=== PATIENT | male | born 2005 | race Caucasian/White ===

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

== ENCOUNTER 2025-07-19 20:12 | Emergency (ER) | payer OTHER ==
[~2025-07-19] VITALS: Ht 180.3 cm; Wt 129.3 kg
[~2025-07-19 20:12] MED LIST changes: +FLONASE16 GM NASAL; +MUCINEX D ER 61 EACH PO; +ZITHROMAX500 MG PO
[2025-07-19 22:04] LABS: BASO % 0.5 % (0.1-1.2); EOS # 0.17 (0.04-0.54); EOS % 1.1 % (0.7-7.0); LYMPH # 10.79 (1.18-3.74); LYMPH % 72.5 % (19.3-53.1); MEAN PLATELET VOLUME 9.10 fl (9.4-12.4); MONO # 0.84 (0.24-0.82); MONO % 5.6 % (4.7-12.5); NEUT # 2.96 (1.56-6.13); NEUT % 19.9 % (34.0-71.1); RED CELL DISTRIBUTION WIDTH 12.2 % (11.6-14.4)
[2025-07-19 22:23] LABS: ERYTHROCYTE SEDIMENTATION RATE 11 mm/hr (0-15)
[2025-07-19 22:31] LABS: INR 1.06
[2025-07-19] MEDS ORDERED: METHYLPREDNISOLONE SOD SUCC 125 MG VIAL IV STA (22:31)
[2025-07-19 22:36] LABS: ALT/SGPT 117.0 U/L (12-78); AST/SGOT 56.0 U/L (15-37); BILIRUBIN TOTAL 0.41 mg/dL (0.3-1.2); BUN CREA RATIO 10.0 (7.0-25.0); CREATININE SERUM 1.04 mg/dL (0.70-1.30); GFR 89.3; GLOBULINA 3.6 G/DL (2.4-3.5); GLUCOSE FASTING 100.0 mg/dL (65-100); OSMOLALITY SERUM 275.0 MOSM/KG (275-295)
[2025-07-19] MEDS ORDERED: CEFTRIAXONE SODIUM 2,000 MG VIAL IV ONE (22:45)
[2025-07-19] MEDS ORDERED: 0.9 % SODIUM CHLORIDE 1,000 ML IV STA (22:52)
[2025-07-19] MEDS ORDERED: CEFTRIAXONE SODIUM 2,000 MG VIAL ONE (23:00)
[2025-07-19] MEDS ORDERED: METHYLPREDNISOLONE SOD SUCC 125 MG VIAL ONE (23:01)
[2025-07-19 23:33] LABS: COVID-19 AG NEGATIVE (NEGATIVE)
== END 2025-07-20 01:00 | disposition home or self-care (01) ==
LOC: ER 20:12
PROVIDERS: Physician Assistant Medical
DX: B27.80 Other infectious mononucleosis without complication (principal); R74.01 Elevation of levels of liver transaminase levels; Z20.822 Contact with and (suspected) exposure to COVID-19